=== PATIENT | male | born 1965 | race Caucasian/White ===

== ENCOUNTER → 2023-11-17 07:16 | Outpatient (REF) | payer OTHER, SELFPAY | LOC: DHCBS MAIN 07:16 | PROVIDERS: ATTENDING PHYSICIAN Internal Medicine Cardiovascular Disease; FAMILY PHYSICIAN Internal Medicine | DX: Z86.79 Personal history of other diseases of the circulatory system (principal) | CPT/HCPCS: 93306 ==